=== PATIENT | female | born 1995 | race Caucasian/White ===

== ENCOUNTER 2017-05-15 13:28 | Emergency (ER) | payer BC ==
[2017-05-15 14:13] VITALS: BP 110/73
[2017-05-15] MEDS ORDERED: Ondansetron ODT TAB* 4 MG PO ONE (14:18)
--- NOTE | 2017-05-15 14:24 | UC ---
UC General HPI - HPI Summary HPI Summary: patient complaining of dry heaves x2 this morning. denies vomiting, denies fever or stomach ache - History of Current Complaint Chief Complaint: UCGI Stated Complaint: STOMACH COMPLAINT Time Seen by Provider: 05/15/17 14:10 Hx Obtained From: Patient Hx Last Menstrual Period: 05/03/17 Onset/Duration: Sudden Onset, Lasting Hours Timing: Intermittent Episodes Lasting: Onset Severity: Mild Current Severity: Mild - Allergy/Home Medications Allergies/Adverse Reactions: Allergies Allergy/AdvReac Type Severity Reaction Status Date / Time No Known Allergies Allergy Verified 05/15/17 14:13 PMH/Surg Hx/FS Hx/Imm Hx Previously Healthy: Yes - Surgical History Surgical History: None - Family History Known Family History: Negative: Cardiac Disease, Hypertension - Social History Alcohol Use: None Substance Use Type: None Smoking Status (MU): Never Smoked Tobacco - Immunization History Most Recent Influenza Vaccination: no Review of Systems Constitutional: Negative Skin: Negative Eyes: Negative ENT: Negative Respiratory: Negative Cardiovascular: Negative Gastrointestinal: Nausea Genitourinary: Negative Motor: Negative Neurovascular: Negative Musculoskeletal: Negative Neurological: Negative Psychological: Negative Is Patient Immunocompromised?: No All Other Systems Reviewed And Are Negative: Yes Physical Exam Triage Information Reviewed: Yes Appearance: Well-Appearing, Well-Nourished, Pain Distress Vital Signs: Initial Vital Signs Temp 98.6 F 05/15/17 14:09 Pulse 86 05/15/17 14:09 Resp 16 05/15/17 14:09 BP 110/73 05/15/17 14:09 Pulse Ox 100 05/15/17 14:09 Vital Signs Reviewed: Yes Eye Exam: Normal ENT Exam: Normal Dental Exam: Normal Neck exam: Normal Respiratory Exam: Normal Cardiovascular Exam: Normal Abdomen Description: Positive: Nontender, No Organomegaly, Soft, CVA Tenderness (R) - neg, CVA Tenderness (L) - neg Bowel Sounds: Positive: Present Musculoskeletal Exam: Normal Neurological Exam: Normal Psychological Exam: Normal Skin Exam: Normal Course/Dx - Course Course Of Treatment: hx obtained, exam performed ,meds reviewed, given a zofran and advised to increase fluids and rest. - Differential Dx - Multi-Symptom Provider Diagnoses: nausea Discharge - Discharge Plan Condition: Stable Disposition: HOME Patient Education Materials: Acute Nausea and Vomiting (ED) Additional Instructions: 1. take the zofran every 8 hours as needed, you received one here during your visit 2. Increase your fluid intake and get plenty of rest. 3. Follow up if you get worse.
== END 2017-05-15 14:30 | disposition home or self-care (01) ==
LOC: UCCORT 13:28
DX: R11.0 Nausea (principal)
CPT/HCPCS: 99212; A9270-GY; G0463

== ENCOUNTER 2017-10-12 09:48 | Emergency (ER) | payer BC ==
[2017-10-12 11:04] VITALS: BP 128/77
--- NOTE | 2017-10-12 11:29 | UC ---
Dizzy HPI HPI Summary: 22 yo female with the onset of dizziness that started yesterday she fells a little unsteady on her feet worsens with moving eyes and changing head position no URI symptoms very mild left ear ache no tinnitis or roaring in ears no headache no CP or SOB no n/v/d no head injury - History Of Current Complaint Chief Complaint: UCDizziness Stated Complaint: DIZZINESS DUE TO EARS Time Seen by Provider: 10/12/17 11:10 Hx Obtained From: Patient Hx Last Menstrual Period: 09/25/17 Onset/Duration: Gradual Onset, Lasting Hours Timing: Constant Severity Initially: Moderate Severity Currently: Mild Pain Intensity: 0 Pain Scale Used: 0-10 Numeric Character: Dizzy Aggravating Factor(s): Position Change, Supine To Erect Alleviating Factor(s): Nothing Associated Signs And Symptoms: Positive: Unsteady Gait - slightly unsteady, Decreased Oral Intake - anorexic. Negative: Nausea, Vomiting, Diaphoresis, Tinnitus, Chest Pain, SOB, Palpitations, Visual Changes, Change In Medication, Change In Diet, OTC Medications - Allergies/Home Medications Allergies/Adverse Reactions: Allergies Allergy/AdvReac Type Severity Reaction Status Date / Time No Known Allergies Allergy Verified 10/12/17 10:55 PMH/Surg Hx/FS Hx/Imm Hx Previously Healthy: Yes - Surgical History Surgical History: None - Family History Known Family History: Negative: Cardiac Disease, Hypertension, Diabetes - Social History Alcohol Use: None Substance Use Type: None Smoking Status (MU): Never Smoked Tobacco - Immunization History Most Recent Influenza Vaccination: no Review of Systems Constitutional: Negative Skin: Negative Eyes: Negative ENT: Negative Respiratory: Negative Cardiovascular: Negative Gastrointestinal: Negative Genitourinary: Negative Motor: Negative Neurovascular: Negative Musculoskeletal: Negative Neurological: Negative Psychological: Negative Is Patient Immunocompromised?: No All Other Systems Reviewed And Are Negative: Yes Physical Exam Triage Information Reviewed: Yes Appearance: Well-Appearing, No Pain Distress, Thin Vital Signs: Initial Vital Signs Temp 99.6 F 10/12/17 10:57 Pulse 93 10/12/17 10:57 Resp 18 10/12/17 10:57 BP 128/77 10/12/17 10:57 Pulse Ox 99 10/12/17 10:57 Vital Signs Reviewed: Yes Eyes: Positive: Conjunctiva Clear, Other: - EOMI/PERRL ENT: Positive: Hearing grossly normal, Pharynx normal, TMs normal, Uvula midline. Negative: Nasal congestion, Nasal drainage, TM bulging, TM dull, TM red, Tonsillar swelling, Tonsillar exudate, Trismus, Muffled voice, Hoarse voice , Dental tenderness, Sinus tenderness Dental Exam: Normal Neck: Positive: Nontender, No Lymphadenopathy Respiratory: Positive: Lungs clear, Normal breath sounds, No respiratory distress, No accessory muscle use Cardiovascular: Positive: RRR, No Murmur Musculoskeletal: Positive: Strength Intact, ROM Intact, No Edema Neurological: Positive: Alert, Other: - cn2-12 intact/non focal neuro exam/ normal gait Psychological Exam: Normal Skin Exam: Normal Dizzy Course/Dx - Differential Dx/Diagnosis Provider Diagnoses: dizziness of uncertain cause Discharge - Discharge Plan Condition: Stable Disposition: HOME Patient Education Materials: Dizziness (ED) Forms: *Work Release Referrals: Molly Arriaga MD [Primary Care Provider] - 3 Days (if not better ) Additional Instructions: I am unsure of your symptoms This may be due to viral illness Blood work is pending recheck for new or worsening symptoms see your provider next week if not better
[2017-10-12 14:17] LABS: Hematocrit 40 % (35-47); Hemoglobin 13.9 g/dl (12.0-16.0); Mean Corpuscular HGB Conc 35 g/dl (31-36); Mean Corpuscular Hemoglobin 29 pg (27-31); Mean Corpuscular Volume 83 fL (80-97); Mean Platelet Volume 8 um3 (7.4-10.4); Platelet Count 364 10^3/ul (150-450); Red Blood Count 4.84 10^6/ul (4.0-5.4); Red Cell Distribution Width 13 % (10.5-15); White Blood Count 7.9 10^3/ul (3.5-10.8)
[2017-10-12 14:30] LABS: EGFR Non-African American 122.8 (>60)
== END 2017-10-12 11:34 | disposition home or self-care (01) ==
LOC: UCCORT 09:48
DX: R42 Dizziness and giddiness (principal)
CPT/HCPCS: 36415; 80048; 85027; 99211; G0463

== ENCOUNTER 2019-01-15 17:29 | Emergency (ER) | payer BC ==
[2019-01-15 18:29] VITALS: BP 116/82
--- NOTE | 2019-01-15 18:58 | ED ---
Throat Pain/Nasal Congestion - HPI Summary HPI Summary: 23 yr old female with the complaint of discomfort in the right occipital protuberance/ mastoid process. The pain is 2/10, worse with turning head toward the left and forward flexion. No obvious trauma, injury. No fever or ear pain, no swelling. No headache, no other complaints. - History of Current Complaint Chief Complaint: UCSkin Time Seen by Provider: 01/15/19 18:20 - Allergies/Home Medications Allergies/Adverse Reactions: Allergies Allergy/AdvReac Type Severity Reaction Status Date / Time No Known Allergies Allergy Verified 01/15/19 18:31 Home Medications: Home Medications Tretinoin 0.1 % EX BID 01/15/19 [History Confirmed 01/15/19] PMH/Surg Hx/FS Hx/Imm Hx Infectious Disease History: No Infectious Disease History: Denies: Traveled Outside the [place] in Last 30 Days - Family History Known Family History: Negative: Cardiac Disease, Hypertension, Diabetes - Social History Alcohol Use: None Substance Use Type: Reports: None Smoking Status (MU): Never Smoked Tobacco Review of Systems Constitutional: Negative Neurological: Other - right mastoid protuberance prominence. Negative: Headache All Other Systems Reviewed And Are Negative: Yes Physical Exam Triage Information Reviewed: Yes Vital Signs On Initial Exam: Initial Vitals Temp Pulse Resp BP Pulse Ox 99.2 F 96 16 116/82 99 01/15/19 18:24 01/15/19 18:24 01/15/19 18:24 01/15/19 18:24 01/15/19 18:24 Vital Signs Reviewed: Yes Appearance: Positive: Well-Appearing, No Pain Distress Skin: Positive: Warm, Skin Color Reflects Adequate Perfusion Head/Face: Positive: Normal Head/Face Inspection, Other - she has symmetric mastoid process of the occipital protuberance, no swelling, no obvious tenderness. Eyes: Positive: EOMI ENT: Positive: Pharynx normal, TMs normal. Negative: Muffled voice, Hoarse voice Neck: Positive: Supple, Nontender Respiratory/Lung Sounds: Positive: Clear to Auscultation, Breath Sounds Present Cardiovascular: Positive: RRR. Negative: Murmur Abdomen Description: Negative: Distended Musculoskeletal: Positive: Strength/ROM Intact Neurological: Positive: Sensory/Motor Intact, Alert, Oriented to Person Place, Time, CN Intact II-III, Normal Gait, Speech Normal Psychiatric: Positive: Normal Diagnostics - Vital Signs Vital Signs Temp Pulse Resp BP Pulse Ox 01/15/19 18:24 99.2 F 96 16 116/82 99 - Laboratory Lab Statement: Any lab studies that have been ordered have been reviewed, and results considered in the medical decision making process. EENT Course/Dx - Course Course Of Treatment: 23 yr old with likely muscle strain at the insertion of the mastoid process of occipital protuberance on the right side. Plan DC home on motrin. FU with PMD> - Diagnoses Provider Diagnoses: Mastoid pain Discharge - Sign-Out/Discharge Documenting (check all that apply): Patient Departure All imaging exams completed and their final reports reviewed: No Studies - Discharge Plan Condition: Good Disposition: HOME Prescriptions: Ibuprofen TAB* [Motrin TAB* 400 MG] 400 mg PO Q6H PRN #20 tab PRN Reason: Pain Patient Education Materials: Muscle Strain (ED), Neck Pain (ED) Referrals: Molly Arriaga MD [Primary Care Provider] - 2 Days - Billing Disposition and Condition Condition: GOOD Disposition: Home
== END 2019-01-15 19:08 | disposition home or self-care (01) ==
LOC: UCCORT 17:29
DX: R51 Headache (principal)
CPT/HCPCS: 99212; G0463